=== PATIENT | male | born 2000 | race Caucasian/White ===

== ENCOUNTER 2024-04-14 14:35 | Emergency (ER) | payer OTHER ==
[~2024-04-14] VITALS: Ht 172.7 cm; Wt 61.7 kg
[2024-04-14 16:00] VITALS: BP 135/79; PULSE 74; RESP 18; TEMP 97.3; O2SAT 99
[2024-04-14] MEDS ORDERED: BACTO TP (16:26)
[2024-04-14] MEDS ORDERED: LOTC TP (16:26)
== END 2024-04-14 16:45 | disposition home or self-care (01) ==
LOC: MED 14:35
DX: R21 Rash and other nonspecific skin eruption (principal); L29.9 Pruritus, unspecified; Z79.899 Other long term (current) drug therapy
CPT/HCPCS: 99283